=== PATIENT | male | born 1950 | race American Indian/Alaskan Native ===

== ENCOUNTER 2020-08-21 22:46 | Emergency (ER) | payer MEDICARE ==
[2020-08-21] MEDS ORDERED: ASPIRIN 325 MG TAB PO ONE (22:58)
--- NOTE | 2020-08-21 23:03 | Event Note ---
ED Screening Note Date of service: 08/21/20 Time: 23:00 ED Screening Note: Patient is a 70 yo AA male with no past medical history who presents to the ED with c/o acute onset persistent diffuse chest pain constantly for the last 12 hours with worsening symptoms with cough or exertion. Patient denies dyspnea, dizziness, headache, nausea, vomiting, diaphoresis, back pain, fever, chills, neck pain, syncope, dizziness, seizures or traumatic injury, heavy lifting or numbness, tingling or weakness of upper and lower extremities bilaterally. This initial assessment/diagnostic orders/clinical plan/treatment(s) is/are subject to change based on patients health status, clinical progression and re- assessment by fellow clinical providers in the ED. Further treatment and workup at subsequent clinical providers discretion. Patient/guardian urged not to elope from the ED as their condition may be serious if not clinically assessed and managed. Initial orders include: CBC, CMP, Troponin, BNP, CXR, EKG
[2020-08-21 23:20] LABS: Basophils % (Auto) 0.4 % (0.0-1.8); Eosinophils # (Auto) 0.1 K/mm3 (0.0-0.4); Eosinophils % (Auto) 0.8 % (0.0-4.3); Hematocrit 46.9 % (35.5-45.6); Hemoglobin 15.7 gm/dl (11.8-15.2); Lymphocytes # (Auto) 1.4 K/mm3 (1.2-5.4); Lymphocytes % (Auto) 14.5 % (13.4-35.0); Mean Corpuscular HGB Conc 34 % (32-34); Mean Corpuscular Volume 94 fl (84-94); Monocytes # (Auto) 0.7 K/mm3 (0.0-0.8); Monocytes % (Auto) 6.6 % (0.0-7.3); Platelet Count 231 K/mm3 (140-440); Red Blood Count 4.99 M/mm3 (3.65-5.03); Red Cell Distribution Width 13.8 % (13.2-15.2)
--- NOTE | 2020-08-21 23:30 | Emergency Department Report ---
<TREYKARINENORM OttoClaudia - Last Filed: 08/22/20 03:38> ED Chest Pain HPI - General Chief Complaint: Chest Pain Stated Complaint: CHEST PAIN Time Seen by Provider: 08/21/20 23:30 - Related Data Previous Rx's Medication Instructions Recorded Last Taken Type Aspirin 325 mg PO QDAY #30 tablet 08/22/20 Unknown Rx Allergies Allergy/AdvReac Type Severity Reaction Status Date / Time No Known Allergies Allergy Verified 08/21/20 22:53 ED Past Medical Hx - Medications Home Medications: Home Medications Medication Instructions Recorded Confirmed Last Taken Type Aspirin 325 mg PO QDAY #30 tablet 08/22/20 Unknown Rx ED Medical Decision Making - Lab Data Result diagrams: 08/21/20 23:03 08/21/20 23:03 - Medical Decision Making Patient is 70 years old male signed out to me by my colleague Dr. Jurado of to follow-up on a chest CTA. Patient presented with chest pain. I received a call from the radiologist stating that there is a dense material in the duodenum and radiologist is concerned about possible bleeding and he advised to do a dedicated CT abdomen and pelvis which she showed a similar density indicating possibly ingested material and less likely extravasation of the contrast. I personally examined the patient. Patient is alert, oriented x3 no acute distress with stable vital signs and completely negative exam with a soft abdomen and no tenderness. Patient informed about his CT finding and the need for admission for further management and observation however patient stated that he does not want to stay and he want to follow-up with his primary doctor. Patient informed about leaving AGAINST MEDICAL ADVICE that can lead to permanent disability or however patient insisted to leave. Patient did not give a good reason for leaving but patient is able to make sound decision. Patient advised to return to the ER at any time or can go to another ER. ED Disposition Clinical Impression: Acute chest pain, Abnormal EKG, Duodenal anomaly Disposition: LEFT AGAINST MED ADVICE Is pt being admited?: No Condition: Undetermined Instructions: Nonspecific Chest Pain, Adult, Angina, Chest Pain (ED) Additional Instructions: As we discussed, you have left the hospital/emergency room AGAINST MEDICAL ADVICE. By leaving, you risked , disability, paralysis, permanent loss of quality of life. The ER is open 24 hours a day, 7 days a week. It never closes. Please return to the emergency room right away if and when you change your mind. If you decide not to return to the emergency room, please follow-up with the listed physician referrals as soon as possible. Take aspirin on a daily basis. Do not take metformin for the next 2 days if patient takes this medication. Follow-up as soon as possible with a build technician or primary care doctor. Prescriptions: Aspirin 325 mg PO QDAY #30 tablet Referrals: CRISSY SHETTY MD [Staff Physician] - 3-5 Days JO MIRANDA MD [Staff Physician] - 3-5 Days [facility] [Provider Group] - 3-5 Days [facility] [Provider Group] - 3-5 Days Forms: AMA Form <CRISTIN ROA - Last Filed: 08/22/20 16:34> ED Chest Pain HPI - General PUI?: No Source: patient, RN notes reviewed Mode of arrival: Ambulatory Limitations: No Limitations - History of Present Illness Initial Comments: The patient was evaluated in the emergency department for symptoms described in the history of present illness. He/she was evaluated in the context of the global COVID-19 pandemic, which necessitated consideration that the patient might be at risk for infection with the virus that causes COVID-19. Institutional protocols and algorithms that pertain to the evaluation of patients at risk for COVID-19 are in a state of rapid change based on information released by regulatory bodies including the CDC and federal and state organizations. These policies and algorithms were followed during the patient's care in the emergency department. Please note that these policies, procedures and recommendations changed on a rapid basis. Primary CARE doctor: [facility] Past medical history: Hypertension, high cholesterol, chronic back pain, spinal stimulator The patient is a 70-year-old gentleman. He is not known to myself previously. He presents to the ER with a complaint of nontraumatic posterior thoracic pain that radiates around to his chest, and intermittent chest discomfort. This has been present since this morning. The pain is intermittent. He denies vomiting or diaphoresis. He denies shortness of breath. He denies headache and neck pain. No recent aspirin consumption, except for today after his pain started. No travel, surgery, leg pain, leg swelling. The pain worsens when he takes a deep breath. No personal or family history of DVT or pulmonary embolism. Last cardiac stress test was 3 to 4 years ago. He does not have a primary build technician. He has chronic loss of appetite, but denies new/different loss of taste and smell. Denies fever. MD Complaint: chest pain, other -: Gradual, hour(s) Onset: during rest Pain Location: left chest, epigastric Pain Radiation: back Severity: moderate Quality: aching Consistency: intermittent Improves With: rest Worsens With: inspiration Treatments Prior to Arrival: aspirin Aspirin use within the Past 7 Days: (1) Yes Heart Score - HEART Score History: Slightly suspicious EKG: Non-specific Age: > 65 Risk factors: 1-2 risk factors Troponin: < normal limit HEART Score: 4 - Critical Actions Critical Actions: 4-6 pts:12-16.6% risk of adverse cardiac event. Should be admitted ED Review of Systems ROS: Stated complaint: CHEST PAIN Other details as noted in HPI Constitutional: denies: fever, malaise ENT: denies: congestion Respiratory: denies: cough, wheezing Cardiovascular: chest pain Gastrointestinal: denies: abdominal pain Genitourinary: denies: dysuria Musculoskeletal: back pain Neurological: denies: headache Hematological/Lymphatic: denies: easy bleeding ED Past Medical Hx - Past Medical History Previous Medical History?: No - Surgical History Past Surgical History?: Yes Additional Surgical History: back and neck. spinal cord stimulator - Social History Smoking Status: Never Smoker Substance Use Type: None ED Physical Exam - General Limitations: No Limitations General appearance: alert, in no apparent distress - Head Head exam: Present: atraumatic, normocephalic - Eye Eye exam: Present: normal appearance, EOMI. Absent: nystagmus - ENT ENT exam: Present: normal exam, normal orophraynx, mucous membranes moist, normal external ear exam - Neck Neck exam: Present: normal inspection, full ROM. Absent: tenderness, meningismus - Respiratory Respiratory exam: Present: normal lung sounds bilaterally. Absent: respiratory distress, wheezes, rales, rhonchi, stridor, chest wall tenderness - Cardiovascular Cardiovascular Exam: Present: regular rate, normal rhythm, normal heart sounds. Absent: bradycardia, tachycardia, irregular rhythm, systolic murmur, diastolic murmur, rubs, gallop - GI/Abdominal GI/Abdominal exam: Present: soft. Absent: distended, tenderness, guarding, rebound, rigid, pulsatile mass - Rectal Rectal exam: Present: deferred - Extremities Exam Extremities exam: Present: normal inspection, full ROM, other (2+ pulses noted in the bilateral upper and lower extremities. There is no palpable cord. negative Homans sign. Muscular compartments are soft. The pelvis is stable.). Absent: pedal edema, calf tenderness - Back Exam Back exam: Present: normal inspection, full ROM, paraspinal tenderness. Absent: tenderness, CVA tenderness (R), CVA tenderness (L) - Neurological Exam Neurological exam: Present: alert, oriented X3, normal gait, other (No facial droop. Tongue midline. Extraocular movements intact bilaterally. Facial sensation intact to light touch in V1, V2, V3 distribution bilaterally. 5 and a 5 strength in 4 extremities. Sensation intact to light touch in 4 extremities.). Absent: motor sensory deficit - Psychiatric Psychiatric exam: Present: flat affect - Skin Skin exam: Present: warm, dry, intact, normal color. Absent: rash ED Course Vital Signs 08/21/20 08/21/20 08/21/20 22:55 22:56 23:55 Temperature 99.3 F Pulse Rate 84 82 Respiratory 16 22 Rate Blood Pressure 169/109 167/107 Blood Pressure 167/107 [Left] O2 Sat by Pulse 99 98 Oximetry 08/22/20 08/22/20 08/22/20 00:00 00:16 00:30 Temperature Pulse Rate 84 78 76 Respiratory 19 21 21 Rate Blood Pressure 167/107 140/93 140/93 Blood Pressure [Left] O2 Sat by Pulse 98 98 97 Oximetry 08/22/20 08/22/20 08/22/20 00:46 01:30 01:45 Temperature Pulse Rate 82 73 Respiratory 26 H 21 Rate Blood Pressure 140/93 140/93 Blood Pressure 140/101 [Left] O2 Sat by Pulse 98 99 99 Oximetry 08/22/20 08/22/20 08/22/20 01:46 02:00 02:15 Temperature Pulse Rate 73 77 66 Respiratory 20 24 24 Rate Blood Pressure 140/101 167/107 135/96 Blood Pressure [Left] O2 Sat by Pulse 99 98 98 Oximetry 08/22/20 08/22/20 08/22/20 02:30 03:02 03:15 Temperature Pulse Rate 63 74 77 Respiratory 24 20 24 Rate Blood Pressure 140/93 135/102 159/105 Blood Pressure 135/102 [Left] O2 Sat by Pulse 98 98 98 Oximetry 08/22/20 08/22/20 03:30 03:46 Temperature Pulse Rate 73 75 Respiratory 22 Rate Blood Pressure 140/93 140/93 Blood Pressure [Left] O2 Sat by Pulse 98 98 Oximetry - Reevaluation(s) Reevaluation #1: 08/21/20 23:53 Differential diagnosis, including but not limited to: GERD, gastritis, hiatal hernia, pneumonia, pleurisy, acute coronary syndrome, pulmonary embolism Assessment and plan: 70-year-old gentleman, with a history of hypertension and high cholesterol, abnormal EKG, moderate risk for major adverse cardiac event as per heart score, not currently tachycardic, tachypneic or hypoxic, low risk for pulmonary embolism by Wells criteria, however, with back pain that radiates around to the front, and a pleuritic component. Treat the patient's pain, send D-dimer to risk ratified for pulmonary embolism. Have discussed this plan of care with the patient. We have also advised admission to the medical service for cardiac risk ratification, assuming no evidence of pulmonary embolism is present. Patient reluctant to be admitted at this time. This entire conversation is witnessed by nurse Manuela Miller. Patient is currently awake, alert, oriented, clinically sober, and free from distracting injury, at this time, and he exhibits decision-making capacity. Risks of leaving, including , disability, paralysis, permanent loss of quality of life, cardiac arrest are discussed with the patient, who verbalizes understanding. We will treat his pain, he asks that he have some time to think about admission, while his work-up continues. 08/21/20 23:55 Reevaluation #2: 08/22/20 00:50 D-dimer is elevated. Have once again rediscussed with patient. He is amenable to CT scan of the chest. We have also had extensive discussion regarding my recommendation for admission for cardiac risk ratification. Patient is amb ivalent about this at this time. He remains alert, oriented, sober, and exhibits decision-making capacity, and is able to articulate risks, benefits in his own words. Patient may end up leaving AGAINST MEDICAL ADVICE, depending on what CT scan of the chest shows. He understands that this is not medically recommended, and he is comfortable at this time assuming risks of , disability, paralysis, loss of quality of life. care was transferred to the overnight physician Dr Melo Tolbert to follow up on cta chest cta chest was negative for pulmonary embolism, demonstrated nonspecific abnormal ities in the duodenum. Patient had a dedicated CT scan of the abdomen pelvis is ordered for follow-up, which did not demonstrate any significant or acute pathology. Unfortunately, the patient signed out AGAINST MEDICAL ADVICE. 08/22/20 16:32 TOMMY score - Tommy Score Age > 65: (1) Yes Aspirin use within the Past 7 Days: (1) Yes 3 or more CAD Risk Factors: (0) No 2 or more Angina events in past 24 hrs: (0) No Known CAD with more than 50% Stenosis: (0) No Elevated Cardiac Markers: (0) No ST Deviation Greater than 0.5mm: (0) No TOMMY Score: 2 ED Medical Decision Making - Lab Data Result diagrams: 08/21/20 23:03 08/21/20 23:03 Vital Signs 08/21/20 08/21/20 22:55 22:56 Temperature 99.3 F Pulse Rate 84 Respiratory 16 Rate Blood Pressure 169/109 O2 Sat by Pulse 99 Oximetry Lab Results 08/21/20 08/21/20 Range/Units 23:03 23:03 WBC 10.0 (4.5-11.0) K/mm3 RBC 4.99 (3.65-5.03) M/mm3 Hgb 15.7 H (11.8-15.2) gm/dl Hct 46.9 H (35.5-45.6) % MCV 94 (84-94) fl MCH 32 (28-32) pg MCHC 34 (32-34) % RDW 13.8 (13.2-15.2) % Plt Count 231 (140-440) K/mm3 Lymph % (Auto) 14.5 (13.4-35.0) % [place] % (Auto) 6.6 (0.0-7.3) % Eos % (Auto) 0.8 (0.0-4.3) % Baso % (Auto) 0.4 (0.0-1.8) % Lymph # (Auto) 1.4 (1.2-5.4) K/mm3 [place] # (Auto) 0.7 (0.0-0.8) K/mm3 Eos # (Auto) 0.1 (0.0-0.4) K/mm3 Baso # (Auto) 0.0 (0.0-0.1) K/mm3 Seg Neutrophils % 77.7 H (40.0-70.0) % Seg Neutrophils # 7.8 H (1.8-7.7) K/mm3 Sodium 136 L (137-145) mmol/L Potassium 3.2 L (3.6-5.0) mmol/L Chloride 102.1 (98-107) mmol/L Carbon Dioxide 27 (22-30) mmol/L Anion Gap 10 mmol/L BUN 17 (9-20) mg/dL Creatinine 1.4 H (0.8-1.3) mg/dL Estimated GFR > 60 ml/min BUN/Creatinine Ratio 12 % Glucose 148 H (75-100) mg/dL Calcium 9.0 (8.4-10.2) mg/dL Total Bilirubin 0.30 (0.1-1.2) mg/dL AST 16 (5-40) units/L ALT 7 (7-56) units/L Alkaline Phosphatase 89 (35-129) units/L Troponin T < 0.010 (0.00-0.029) ng/mL NT-Pro-B Natriuret Pep 116.8 (0-900) pg/mL Total Protein 7.5 (6.3-8.2) g/dL Albumin 4.4 (3.9-5) g/dL Albumin/Globulin Ratio 1.4 % - EKG Data -: EKG Interpreted by Me EKG shows normal: sinus rhythm Rate: normal - EKG Data When compared to previous EKG there are: previous EKG unavailable 08/21/20 23:53 There is no prior EKG available for comparison. Sinus rhythm, 88 bpm. Left a xis deviation, left anterior fascicular block. Incomplete right bundle branch block. Left ventricular hypertrophy. Intervals within normal limits. This is an abnormal EKG. The EKG is not a STEMI. - Radiology Data Radiology results: pending, report reviewed, image reviewed interpreted by me: 1 view x-ray of the chest interpreted by myself, no acute infiltrate, chronic interstitial appearance to the lungs, spinal stimulator noted, no obvious pneumothorax. Mediastinum appears to be within normal limits CTA CHEST WITH CONTRAST INDICATION / CLINICAL INFORMATION: Pleuritic chest pain, elevated D-dimer, abnormal EKG. TECHNIQUE: Axial CT images were obtained through the chest after injection of IV contrast. 3 plane MIP and/or 3D reconstructions were produced. All CT scans at this location are performed using CT dose reduction for ALARA by means of automated exposure control. COMPARISON: None available. FINDINGS: PULMONARY ARTERIES: No central or segmental pulmonary embolus. THORACIC AORTA: No significant abnormality. HEART: No significant abnormality. ADENOPATHY: No significant adenopathy. LUNGS/PLEURA: No focal airspace consolidation. No pleural effusion. No pneumothorax. ADDITIONAL FINDINGS: None. UPPER ABDOMEN: There is irregular intraluminal high density material centered at the duodenal bulb. Small amount contrast is also seen extending into the gastric lumen. The duodenal bulb appears prominent no e xtraluminal stranding or fluid collection detected. SKELETAL STRUCTURES: No significant osseous abnormality. IMPRESSION: 1. Intraluminal high density material in the duodenal bulb. This could reflect ingested material, though intraluminal active extravasation is not excluded. Consider dedicated CT of the abdomen and pelvis to further evaluate this finding. 2. No acute findings in the chest. No evidence of pulmonary embolus. Signer Name: Paul Benavides MD Signed: 08/22/2020 1:09 AM Workstation Name: [id number] CT ABDOMEN AND PELVIS WITHOUT CONTRAST INDICATION / CLINICAL INFORMATION: Patient has NO complaints of abdominal pain. Abnormal prior C.T.. TECHNIQUE: Axial CT images were obtained through the abdomen and pelvis without IV contrast. All CT scans at this location are performed using CT dose reduction for ALARA by means of automated exposure control. COMPARISON: CTA chest from 08/22/2020. FINDINGS: Lung bases are clear. Liver and gallbladder are unremarkable. No biliary dilatation. Pancreas, spleen, adrenals, and kidneys demonstrate no acute abnormality. Right renal cyst. Prostate is enlarged. Again seen, there is high density material centered in the proximal duodenum, similar in appearance from prior study. No discrete intraluminal lesion is identified. No signal inflammatory stranding or extra luminal gas. Small bowel is otherwise normal. No obstruction. Scattered colonic diverticulosis without CT evidence diverticulitis. Appendix is normal. No free fluid or adenopathy. No acute osseous findings. IMPRESSION: Intraluminal high density material again seen in the proximal duodenum. This is essentially unchanged in appearance compared to recent CTA of the chest, suggesting this may simply reflect ingested material. Active intraluminal extravasation is not entirely excluded, though felt less likely. Consider short-term CT follow-up, as clinically indicated. Signer Name: Paul Benavides MD Signed: 08/22/2020 2:16 AM Critical care attestation.: If time is entered above; I have spent that time in minutes in the direct care of this critically ill patient, excluding procedure time. ED Disposition Is pt being admited?: No Does the pt Need Aspirin: No
[2020-08-21 23:37] LABS: Alanine Aminotransferase 7 units/L (7-56); Albumin 4.4 g/dL (3.9-5); BUN/Creatinine Ratio 12; Blood Urea Nitrogen 17 mg/dL (9-20); Hemolysis Index 8
[2020-08-21] MEDS ORDERED: FAMOTIDINE 20 MG TAB PO ONE (23:44)
[2020-08-21] MEDS ORDERED: NITROGLYCERIN 0.4 MG TAB SUBL SL PRN (23:44)
[2020-08-21] MEDS ORDERED: POTASSIUM CHLORIDE ER 20 MEQ TAB PO ONE (23:44)
--- NOTE | 2020-08-21 23:58 | XRay Report ---
XR chest 1V ap INDICATION / CLINICAL INFORMATION: chest pain. COMPARISON: None available. FINDINGS: SUPPORT DEVICES: None. HEART /PULMONARY VASCULATURE: No significant abnormality. LUNGS / PLEURA: No significant pulmonary or pleural abnormality. No pneumothorax. ADDITIONAL FINDINGS: No significant additional findings. IMPRESSION: 1. No acute findings. Signer Name: Paul Benavides MD Signed: 08/21/2020 11:54 PM Workstation Name: [id number]
[2020-08-22 00:29] LABS: INR 1.03 (0.87-1.13)
[2020-08-22] MEDS ORDERED: SODIUM CHLORIDE 0.9% 500 ML 500 ML IV ONE (00:35)
--- NOTE | 2020-08-22 02:13 | Cat Scan Report ---
CTA CHEST WITH CONTRAST INDICATION / CLINICAL INFORMATION: Pleuritic chest pain, elevated D-dimer, abnormal EKG. TECHNIQUE: Axial CT images were obtained through the chest after injection of IV contrast. 3 plane MD P and/or 3D reconstructions were produced. All CT scans at this location are performed using CT dose reduction for ALARA by means of automated exposure control. COMPARISON: None available. FINDINGS: PULMONARY ARTERIES: No central or segmental pulmonary embolus. THORACIC AORTA: No significant abnormality. HEART: No significant abnormality. ADENOPATHY: No significant adenopathy. LUNGS/PLEURA: No focal airspace consolidation. No pleural effusion. No pneumothorax. ADDITIONAL FINDINGS: None. UPPER ABDOMEN: There is irregular intraluminal high density material centered at the duodenal bulb. S mall amount contrast is also seen extending into the gastric lumen. The duodenal bulb appears promine nt no extraluminal stranding or fluid collection detected. SKELETAL STRUCTURES: No significant osseous abnormality. IMPRESSION: 1. Intraluminal high density material in the duodenal bulb. This could reflect ingested material, tho ugh intraluminal active extravasation is not excluded. Consider dedicated CT of the abdomen and pelvi s to further evaluate this finding. 2. No acute findings in the chest. No evidence of pulmonary embolus. Signer Name: Paul Benavides MD Signed: 08/22/2020 2:09 AM Workstation Name: [id number]
--- NOTE | 2020-08-22 03:21 | Cat Scan Report ---
CT ABDOMEN AND PELVIS WITHOUT CONTRAST INDICATION / CLINICAL INFORMATION: Patient has NO complaints of abdominal pain. Abnormal prior C.T.. TECHNIQUE: Axial CT images were obtained through the abdomen and pelvis without IV contrast. All CT scans at this location are performed using CT dose reduction for ALARA by means of automated exposure control. COMPARISON: CTA chest from 08/22/2020. FINDINGS: Lung bases are clear. Liver and gallbladder are unremarkable. No biliary dilatation. Pancreas, spleen, adrenals, and kidney s demonstrate no acute abnormality. Right renal cyst. Prostate is enlarged. Again seen, there is high density material centered in the proximal duodenum, similar in appearance f rom prior study. No discrete intraluminal lesion is identified. No signal inflammatory stranding or e xtra luminal gas. Small bowel is otherwise normal. No obstruction. Scattered colonic diverticulosis w ithout CT evidence diverticulitis. Appendix is normal. No free fluid or adenopathy. No acute osseous findings. IMPRESSION: Intraluminal high density material again seen in the proximal duodenum. This is essentially unchanged in appearance compared to recent CTA of the chest, suggesting this may simply reflect ingested mater ial. Active intraluminal extravasation is not entirely excluded, though felt less likely. Consider sh ort-term CT follow-up, as clinically indicated. Signer Name: Paul Benavides MD Signed: 08/22/2020 3:16 AM Workstation Name: [id number]
[2020-08-22 04:26] VITALS: BP 140/93
== END 2020-08-22 04:26 | disposition left against medical advice (07) ==
LOC: ED 22:46
DX: R07.89 Other chest pain (principal); Q43.9 Congenital malformation of intestine, unspecified; R94.31 Abnormal electrocardiogram [ECG] [EKG]; Z79.82 Long term (current) use of aspirin
CPT/HCPCS: 36415; 71045; 71275; 74176; 80053; 82550; 83735; 83880; 84484; 85025; 85379; 85610; 93005; 99285; J7040; Q9967